=== PATIENT | male | born 1980 | race Two or more races ===

== ENCOUNTER 2017-10-22 01:43 | Emergency (ER) | payer OTHER ==
[~2017-10-22] VITALS: Ht 170.2 cm; Wt 65.0 kg
[2017-10-22] MEDS ORDERED: SODIUM CHLORIDE 0.9% 1,000 ML IV ONE (02:52)
[2017-10-22 04:38] LABS: CLARITY URINE CLEAR (CLEAR); COLOR URINE YELLOW (YELLOW); KETONES URINE NEGATIVE (NEGATIVE); LEUKOCYTE ESTERASE URINE NEGATIVE (NEGATIVE); NITRITE URINE NEGATIVE (NEGATIVE); OCCULT BLOOD URINE NEGATIVE (NEGATIVE); PH URINE 6.5 (4.5-8.0); PROTEIN URINE NEGATIVE (NEGATIVE); SPECIFIC GRAVITY URINE 1.004 (1.005-1.030); UROBILINOGEN URINE 0.2 E.U./dL (0.2-1.0)
[2017-10-22 04:40] VITALS: BP 114/79
[2017-10-22 04:58] LABS: METHADONE URINE SCREEN NEGATIVE (NEGATIVE)
[2017-10-22 04:59] LABS: *AMPHETAMINES SCREEN URINE NEGATIVE (NEGATIVE); *BARBITURATES SCREEN URINE NEGATIVE (NEGATIVE); *BENZODIAZEPINES SCREEN URINE NEGATIVE (NEGATIVE); *COCAINE SCREEN URINE NEGATIVE (NEGATIVE); CANNABINOID URINE SCREEN NEGATIVE (NEGATIVE); OPIATES URINE SCREEN NEGATIVE (NEGATIVE); PHENCYCLIDINE URINE SCREEN NEGATIVE (NEGATIVE)
== END 2017-10-22 04:40 | disposition home or self-care (01) ==
LOC: ER 01:43
DX: R53.1 Weakness (principal); R42 Dizziness and giddiness; R00.1 Bradycardia, unspecified; E11.9 Type 2 diabetes mellitus without complications; R20.2 Paresthesia of skin; Z91.19 Patient's noncompliance with other medical treatment and regimen
CPT/HCPCS: 71045; 80305; 81003; 82962; 93005; 99285; J7030